=== PATIENT | male | born 1940 | race Caucasian/White ===

== ENCOUNTER 2021-12-10 08:20 | Outpatient (CLI) | payer MEDICARE, OTHER ==
[2021-12-10] MEDS ORDERED: Iopamidol 370 76% 100 ML VIAL ONE (08:52)
== END 2021-12-10 08:21 | disposition home or self-care (01) ==
LOC: CSHCT 08:20
PROVIDERS: ATTEND Nurse Practitioner Family
DX: I25.10 Atherosclerotic heart disease of native coronary artery without angina pectoris (principal); I70.8 Atherosclerosis of other arteries; I71.4 Abdominal aortic aneurysm, without rupture; I72.3 Aneurysm of iliac artery; I72.8 Aneurysm of other specified arteries; D17.5 Benign lipomatous neoplasm of intra-abdominal organs; K57.30 Diverticulosis of large intestine without perforation or abscess without bleeding
CPT/HCPCS: 75635; 82565; Q9967